=== PATIENT | female | born 1960 | race Caucasian/White ===

== ENCOUNTER → 2017-02-07 | Outpatient (CLI) | payer BC ==
--- NOTE | 2017-02-08 13:46 | MAMMOGRAPHY REPORT ---
BILATERAL DIGITAL SCREENING MAMMOGRAM TOMOSYNTHESIS WITH CAD: 02/07/2017 CLINICAL HISTORY: Routine screening. Patient has no complaints. TECHNIQUE: Breast tomosynthesis in addition to standard 2D mammography was performed. Current study was also evaluated with a Computer Aided Detection (CAD) system. COMPARISON: Comparison is made to exams dated: 02/07/2016 mammogram - [facility], 02/01/2015 mammogram, 12/16/2013 mammogram, 12/13/2012 mammogram, 12/15/2011 mammogram, and 11/22/2009 m ammogram. BREAST COMPOSITION: The tissue of both breasts is heterogeneously dense, which may obscure small mas ses. FINDINGS: The parenchymal pattern is unchanged. No developing mass, architectural distortion or clus ter of suspicious microcalcifications is seen in either breast. IMPRESSION: ACR BI-RADS CATEGORY 2: BENIGN There is no mammographic evidence of malignancy. A 1 year screening mammogram is recommended. The pa tient will receive written notification of the results. Approximately 10% of breast cancers are not detected with mammography. A negative mammographic report should not delay biopsy if a clinically suggestive mass is present. Gladis Fleming M.D. ay/:02/07/2017 16:13:49 Crushing Foreman: Joyce FERRERA(Jessica)(Viktor), [facility] letter sent: Normal 1/2 BI-RADS Code: ACR BI-RADS Category 2: Benign
== END | disposition home or self-care (01) ==
LOC: C.MAMM 15:51
PROVIDERS: ATTEND Obstetrics & Gynecology
DX: Z12.31 Encounter for screening mammogram for malignant neoplasm of breast (principal)

== ENCOUNTER 2023-12-10 17:12 | Observation (INO) ==
[2023-12-10 18:03] LABS: iSTAT Creatinine 0.8 mg/dl (0.6-1.3); iSTAT Hemoglobin 12.2 g/dl (12.0-16.0); iSTAT Ionized Calcium 1.18 mmol/l (1.12-1.32); iSTAT Potassium 3.7 mmol/L (3.3-5.0)
[2023-12-10] MEDS: OPTIRAY 320 125ml IV ONE (18:07)
--- NOTE | 2023-12-10 18:07 | XRay Report ---
XR chest 1V portable CLINICAL HISTORY: Chest pain, nonspecific TECHNIQUE: Single frontal radiograph of the chest was obtained. Comparison: Comparison is made to chest radiograph 10/16/2023 FINDINGS: No lines and tubes are seen. The cardiomediastinal silhouette is normal. Right lateral lung base airs pace opacities are seen. No evidence of pleural effusion or pneumothorax. IMPRESSION: Bilateral lung base airspace opacity may represent atelectasis, pneumonia, and/or aspiration. ACT 112: Negative or not required by law. Electronically signed by: Eric Pablo M.D. 12/10/2023 6:05 PM
[2023-12-10 18:14] LABS: Basophils # (auto) 0.04 K/uL (0.00-0.20); Basophils % (auto) 0.3 %; Eosinophils # (auto) 0.22 K/uL (0.00-0.50); Eosinophils % (auto) 1.8 %; Hematocrit (blood only) 37.9 % (37.0-47.0); Immature Granulocytes # (auto) 0.06 K/uL (0.01-0.20); Immature Granulocytes % (auto) 0.5 %; Lymphocytes # (auto) 3.31 K/uL (1.20-3.40); Lymphocytes % (auto) 26.5 %; Mean Corpuscular Hgb Conc 34.3 g/dL (32.0-36.0); Mean Corpuscular Volume 87.3 fL (80.0-100.0); Mean Platelet Volume 9.4 fL (9.4-12.4); Monocytes # (auto) 0.94 K/uL (0.11-0.59); Monocytes % (auto) 7.5 %; Neutrophils # (auto) 7.93 K/uL (1.40-6.50); Neutrophils % (auto) 63.4 %; Platelet Count 291 K/uL (130-400); RDW Coefficient of Variation 12.7 % (11.5-14.5); RDW Standard Deviation 40.9 fL (36.4-46.3); Red Blood Count 4.34 M/uL (4.20-5.40)
--- NOTE | 2023-12-10 18:24 | CT Scan Report ---
CT angio chest PE protocol CLINICAL HISTORY: Chest Pain, eval for PE TECHNIQUE: Multidetector row helical CT of the chest was performed with angiographic protocol. Pike l and sagittal reformations were obtained. Coronal and sagittal MIPS were obtained from the axial ginny a set and were submitted for review. Automated dose lowering techniques and/or adjustment according to patient size were utilized for this exam. CT DOSE: 432.78 mGy.cm Comparison: Comparison is made to chest radiograph 12/10/2023 FINDINGS: Lungs and pleura: Atelectasis versus scarring is seen in the dependent portions of the lungs. Right l ateral groundglass opacities are seen. Heart and pericardium: Heart size is normal. No pericardial effusion. Vessels: Subsegmental pulmonary emboli are seen. Mediastinum and galo: Subcentimeter lymph nodes are seen. Chest wall and lower neck: Unremarkable. Abdomen: Liver rich adenoma is seen on the left. Bones: Degenerative changes in the thoracic spine. IMPRESSION: 1. Tiny subsegmental pulmonary emboli are seen without evidence of right heart strain. 2. Right lateral opacities may represent pulmonary infarct. ACT 112: Negative or not required by law. Electronically signed by: Eric Pablo M.D. 12/10/2023 6:22 PM
[2023-12-10 18:27] LABS: BUN Creatinine Ratio 16.7 (10-20); Calcium 9.3 mg/dl (8.6-10.3); Creatinine Clr Calc Pharmacy 84.5 ml/min; Potassium 3.9 mmol/L (3.5-5.1)
[2023-12-10 18:34] LABS: Troponin I High Sensitivity 3.3 pg/ml (0-14)
[2023-12-10 18:39] LABS: Partial Thromboplastin Ratio 0.9; Partial Thromboplastin Time 25 Seconds (21-31); Prothrombin Time 10.4 Seconds (9.0-12.0)
[2023-12-10] MEDS: Heparin IV Adult Wt-Based Standard w/ INITIAL Bolus Protocol IV STA (20:00)
--- NOTE | 2023-12-10 20:02 | Ultrasound Report ---
Exam(s): US VENOUS BILATERAL LOWER EXTREMITIES EXAM: US Duplex Bilateral Lower Extremities Veins CLINICAL HISTORY: Reason for exam: ro dvt. TECHNIQUE: Real-time duplex ultrasound scan of the bilateral lower extremity veins integrating B-mode two-dimensional vascular structure, Doppler spectral analysis, color flow Doppler imaging and compression. COMPARISON: Ultrasound doppler LE 12/28/22. FINDINGS: Veins: Superficial thrombus RIGHT small saphenous vein in the popliteal fossa to the mid calf. No right-sided DVT. On the LEFT, there is occlusive thrombus in the posterior tibial veins. In the area of interest left mid calf, occlusive venous thrombus is present in this region as well. No DVT in the remaining visualized veins bilaterally, including the common femoral, superficial femoral, proximal deep femoral and popliteal veins. Soft tissues: No popliteal cyst. IMPRESSION: 1. Positive for LEFT, below the knee DVT posterior tibial veins. 2. In the area of interest left mid calf, there is thrombosis of a probable superficial varicosity, likely accounting for the pain. 3. Superficial thrombus RIGHT SSV. Electronically signed by: Mami Stephen M.D. 12/10/23 20:01 PM
[2023-12-10] MEDS ORDERED: HEPARIN SOD (PORCINE) 1000 UNIT/ML IV ONE (20:07)
[2023-12-10] MEDS: HEPARIN SOD (PORCINE) 1000 UNIT/ML IV ONE (20:10)
[2023-12-10] MEDS: HEPARIN SODIUM/DEXTROSE 25,000 UNITS/500 ML BAG IV SCH (20:10)
--- NOTE | 2023-12-10 20:31 | Emergency Department Note ---
History of Present Illness General Chief Complaint: Shortness of Breath/Dyspnea Stated Complaint: SOB, CHEST PAINS, SHOULDER PAIN, LT LEG PAIN Time Seen by Provider: 12/10/23 17:29 History of Present Illness Provider Complaint: shortness of breath and chest pain Onset (ago): day(s) (1) Consistency/Duration: + progressively worsening Relieved By: + nothing Exacerbated By: + nothing Context: + recent travel and + other (Recent surgery) Associated symptoms: + lower extremity pain; no cough, no wheezing, no polyuria, no palpitations, no abdominal pain or no chest congestion Home Medications Medication Instructions Recorded Confirmed Type No Known Home Medications 05/02/23 06/12/23 History Allergies Allergy/AdvReac Type Severity Reaction Status Date / Time No Known Allergies Allergy Verified 06/12/23 10:56 Past Med/Surg History Problem List (Updated 12/10/23 @ 20:31 by Arthur Barclay MD) DVT (deep venous thrombosis) (Acute) Embolism, pulmonary with infarction (Acute) Pulmonary emboli (Acute) ASCUS with positive high risk HPV cervical Urgency incontinence Medical History Tendinitis of left rotator cuff Surgical History H/O varicose vein ligation Family History Mother Breast cancer Dx between 45-47 Myocardial infarction Sister Breast cancer, Onset Age: 56 Other Diabetes Heart disease Denies family history of Ovarian cancer Prostate cancer Colorectal cancer Social History Smoking Status: Former smoker Second Hand Exposure: No; Do You Dip or Chew Tobacco: No; Hx Alcohol Use: Yes Alcohol Intake Frequency: 2-3 x/Week Hx Substance Use: No Preferred Language: Spanish Feels Safe at Home: Yes Physical Exam 2 Vital Signs: Vital Signs - 24 hr 12/10/23 17:18 12/10/23 17:22 12/10/23 17:46 Temperature 36.8 C Temperature Source Temporal Artery Sc an Pulse Rate 99 H Pulse Rate [Apical ] 66 Pulse Rhythm [Apic al] Regular Pulse Strength [Ap ical] Normal Respiratory Rate 20 18 Respiratory Effort / Characteristics Non-Labored Sponta neous Non-Labored Sponta neous Respiratory Depth Normal Normal Respiratory Patter n Regular Blood Pressure 149/86 H Blood Pressure [Ri ght Arm] 146/72 H Blood Pressure Gail n 107 Blood Pressure Gail n [Right Arm] 96 Blood Pressure Pos ition Sitting Blood Pressure Pos ition [Right Arm] Lying Pulse Oximetry 98 97 96 Oxygen Delivery Me thod Room Air Room Air Room Air Sepsis Recent Feve r Within 48 Hours No Sepsis New/Unexpla ined Change in Men pool Status N/A Sepsis Action Take n by Nursing No Action Required 12/10/23 17:46 12/10/23 18:17 12/10/23 19:43 Temperature Temperature Source Pulse Rate 66 Pulse Rate [Apical ] 67 Pulse Rhythm [Apic al] Pulse Strength [Ap ical] Respiratory Rate 16 Respiratory Effort / Characteristics Non-Labored Sponta neous Respiratory Depth Normal Respiratory Patter n Regular Blood Pressure Blood Pressure [Ri ght Arm] 117/66 Blood Pressure Gail n Blood Pressure Gail n [Right Arm] 83 Blood Pressure Pos ition Blood Pressure Pos ition [Right Arm] Pulse Oximetry 96 97 Oxygen Delivery Me thod Room Air Room Air Sepsis Recent Feve r Within 48 Hours Sepsis New/Unexpla ined Change in Men pool Status Sepsis Action Take n by Nursing Physical Exam: Physical Exam GENERAL: She is oriented to person, place, and time. She appears well-developed and well-nourished. She does not appear distressed. HENT: Exam performed. -Head: Normocephalic and atraumatic. EYES: Conjunctivae and EOM are normal. Pupils are equal, round, and reactive to light. Right eye exhibits no discharge. Left eye exhibits no discharge. No scleral icterus. NECK: Normal range of motion. Neck supple. No JVD present. CV: Normal rate, regular rhythm, normal heart sounds and intact distal pulses. There is no peripheral edema. Palpable radial pulses bue. PULM/CHEST: Effort normal and breath sounds normal. No respiratory distress. No stridor. She has no wheezes. She has no rales. MUSC/SKEL: Palpable DP and PT pulses bilateral lower extremities. Compartments of the lower extremities are soft bilaterally. Pain on palpation of bilateral calves. NEURO: She is alert and oriented to person, place, and time. She has normal strength. No cranial nerve deficit or sensory deficit. Coordination and gait normal. GCS eye subscore is 4. GCS verbal subscore is 5. GCS motor subscore is 6. Cerebellar tests wnl. SKIN: Skin is warm and dry. She is not diaphoretic. PSYCH: She has a normal mood and affect. Behavior is normal. Judgment and thought content normal. Course Course 1728: The patient was evaluated in room A3. A complete history and physical exam was performed Cardiac monitoring: An order was placed for continuous cardiac monitoring. The monitor shows a rate of 70 with sinus rhythm interpreted by 1950: Vital signs stable. Labs are unremarkable. CTA of the chest shows right- sided PEs with infarct. Ultrasound is concerning for DVT. Discussed the case with the patient. Given her PEs with pulmonary infarcts and her DVT as well as PE, will admit the patient for anticoagulation with heparin. [facility] hospitalist will be made aware of admission. Administered Medications Heparin Sodium/Dextrose (Heparin Sodium/Dextrose) 25,000 units in 500 mls @ 23 mls/hr IV .[id number] [facility]; Protocol Stop: 01/09/24 20:14 Last Admin: 12/10/23 20:10 Dose: 1,150 units/hr, 23 mls/hr Documented By: VIJAY Co-signed By: MALA Discontinued Medications Heparin Sodium (Porcine) (Heparin Sod (Porcine) 1000 Unit/Ml) 5,000 units IV NOW ONE Stop: 12/10/23 20:08 Last Admin: 12/10/23 20:10 Dose: 5,000 units Documented By: VIJAY Co-signed By: MALA Heparin Sodium/Dextrose (Heparin Iv Adult Wt-Based Standard W/ Initial Bolus Protocol) 1 each IV NOW [facility]; Protocol Stop: 12/10/23 19:52 Last Admin: 12/10/23 20:00 Dose: 1 each Documented By: VIJAY Ioversol (Optiray 320 125ml) 119 ml IV ONCE ONE Stop: 12/10/23 18:07 Last Admin: 12/10/23 18:07 Dose: 119 ml Documented By: ROSENDO Medical Decision Making Laboratory Data Attestation: I reviewed the patient's lab results. 12/10/23 17:31 12/10/23 17:31 Lab Results 12/10/23 12/10/23 Range/Units 17:31 17:51 WBC 12.50 H (4.8-10.8) K/ul RBC 4.34 (4.20-5.40) M/uL Hgb 13.0 (12.0-16.0) g/dl POC Hgb 12.2 (12.0-16.0) g/dl Hct 37.9 (37.0-47.0) % POC Hct 36 L (37-47) % MCV 87.3 (80.0-100.0) fL MCH 30.0 (25.0-34.0) pg MCHC 34.3 (32.0-36.0) g/dL RDW Std Deviation 40.9 (36.4-46.3) fL RDW Coeff of Shivani 12.7 (11.5-14.5) % Plt Count 291 (130-400) K/uL MPV 9.4 (9.4-12.4) fL Immature Gran % (Auto) 0.5 % Neut % (Auto) 63.4 % Lymph % (Auto) 26.5 % [place] % (Auto) 7.5 % Eos % (Auto) 1.8 % Baso % (Auto) 0.3 % Neut # (Auto) 7.93 H (1.40-6.50) K/uL Lymph # (Auto) 3.31 (1.20-3.40) K/uL [place] # (Auto) 0.94 H (0.11-0.59) K/uL Eos # (Auto) 0.22 (0.00-0.50) K/uL Baso # (Auto) 0.04 (0.00-0.20) K/uL Immature Gran # (Auto) 0.06 (0.01-0.20) K/uL PT 10.4 (9.0-12.0) Seconds INR 1.0 (0.9-1.1) APTT 25 (21-31) Seconds PTT Ratio 0.9 POC Sodium 139 (135-144) mmol/L Sodium 138 (136-145) mmol/L POC Potassium 3.7 (3.3-5.0) mmol/L Potassium 3.9 (3.5-5.1) mmol/L POC Chloride 103 (101-112) mmol/L Chloride 104 (98-107) mmol/L Carbon Dioxide 27 (21-32) mmol/L POC Total CO2 23 L (24-31) mmol/L Anion Gap 7 (3-11) POC Anion Gap 18.0 (16-25) mmol/L POC BUN 10 (7-18) mg/dl BUN 11 (6-23) mg/dl Creatinine 0.66 (0.6-1.2) mg/dl POC Creatinine 0.8 (0.6-1.3) mg/dl Est Cr Clr Drug Dosing 84.5 ml/min eGFR 97.29 BUN/Creatinine Ratio 16.7 (10-20) Glucose 92 (70-99(Fasting)) mg/dl POC Glucose (other) 96 (70-99) mg/dl Calcium 9.3 (8.6-10.3) mg/dl POC Ioniz Calcium Pam 1.18 (1.12-1.32) mmol/l Troponin I High Sens 3.3 (0-14) pg/ml Lipase 25 (11-82) U/L Imaging Data Attestation: I personally reviewed and interpreted this imaging study as follows: My Impression: Ultrasound bilateral lower extremity concerning for DVT on the left. Radiologist's Impression: Chest X-Ray 12/10/23 17:45 XR chest 1V portable CLINICAL HISTORY: Chest pain, nonspecific TECHNIQUE: Single frontal radiograph of the chest was obtained. Comparison: Comparison is made to chest radiograph 10/16/2023 FINDINGS: No lines and tubes are seen. The cardiomediastinal silhouette is normal. Right lateral lung base airspace opacities are seen. No evidence of pleural effusion or pneumothorax. IMPRESSION: Bilateral lung base airspace opacity may represent atelectasis, pneumonia, and/or aspiration. ACT 112: Negative or not required by law. Electronically signed by: Eric Pablo M.D. 12/10/2023 6:05 PM Chest CTA 12/10/23 17:46 CT angio chest PE protocol CLINICAL HISTORY: Chest Pain, eval for PE TECHNIQUE: Multidetector row helical CT of the chest was performed with angiographic protocol. Coronal and sagittal reformations were obtained. Coronal and sagittal MIPS were obtained from the axial data set and were submitted for review. Automated dose lowering techniques and/or adjustment according to patient size were utilized for this exam. CT DOSE: 432.78 mGy.cm Comparison: Comparison is made to chest radiograph 12/10/2023 FINDINGS: Lungs and pleura: Atelectasis versus scarring is seen in the dependent portions of the lungs. Right lateral groundglass opacities are seen. Heart and pericardium: Heart size is normal. No pericardial effusion. Vessels: Subsegmental pulmonary emboli are seen. Mediastinum and galo: Subcentimeter lymph nodes are seen. Chest wall and lower neck: Unremarkable. Abdomen: Liver rich adenoma is seen on the left. Bones: Degenerative changes in the thoracic spine. IMPRESSION: 1. Tiny subsegmental pulmonary emboli are seen without evidence of right heart strain. 2. Right lateral opacities may represent pulmonary infarct. ACT 112: Negative or not required by law. Electronically signed by: Eric Pablo M.D. 12/10/2023 6:22 PM Venous Doppler Study 12/10/23 17:46 Exam(s): US VENOUS BILATERAL LOWER EXTREMITIES EXAM: US Duplex Bilateral Lower Extremities Veins CLINICAL HISTORY: Reason for exam: ro dvt. TECHNIQUE: Real-time duplex ultrasound scan of the bilateral lower extremity veins integrating B-mode two-dimensional vascular structure, Doppler spectral analysis, color flow Doppler imaging and compression. COMPARISON: Ultrasound doppler LE 12/28/22. FINDINGS: Veins: Superficial thrombus RIGHT small saphenous vein in the popliteal fossa to the mid calf. No right-sided DVT. On the LEFT, there is occlusive thrombus in the posterior tibial veins. In the area of interest left mid calf, occlusive venous thrombus is present in this region as well. No DVT in the remaining visualized veins bilaterally, including the common femoral, superficial femoral, proximal deep femoral and popliteal veins. Soft tissues: No popliteal cyst. IMPRESSION: 1. Positive for LEFT, below the knee DVT posterior tibial veins. 2. In the area of interest left mid calf, there is thrombosis of a probable superficial varicosity, likely accounting for the pain. 3. Superficial thrombus RIGHT SSV. Electronically signed by: Mami Stephen M.D. 12/10/23 20:01 PM ECG Data Attestation: I personally reviewed and interpreted this ECG as follows: Interpretation: Sinus rhythm with rate of 69. KS QRS and QTc intervals within normal limits. No ST elevation or ST depression. [facility] Narrative 1729: The patient was evaluated in room A3. A complete history and physical exam was performed Cardiac monitoring: An order was placed for continuous cardiac monitoring. The monitor shows a rate of 70 with sinus rhythm interpreted by pa 1950: Vital signs stable. Labs are unremarkable. CTA of the chest shows right- sided PEs with infarct. Ultrasound is concerning for DVT. Discussed the case with the patient. Given her PEs with pulmonary infarcts and her DVT as well as PE, will admit the patient for anticoagulation with heparin. [facility] hospitalist will be made aware of admission. Impression & Plan Pulmonary emboli, Embolism, pulmonary with infarction, DVT (deep venous thrombosis) Critical Care Time Critical Care Time: Yes Total Critical Care Time: 56 I have personally spent greater than 56 minutes of critical care time in the direct management of this patient. This includes bedside care, interpretation of diagnostic studies, and testing, discussion with consultants, patient, and family members, and other required patient management activities. This 56 minutes is in excess of all separately billable procedures. Discharge Plan Visit Data Chief Complaint: Shortness of Breath/Dyspnea Stated Complaint: SOB, CHEST PAINS, SHOULDER PAIN, LT LEG PAIN ED Provider: Arthur Barclay Discharge Problem: Pulmonary emboli, Embolism, pulmonary with infarction, DVT (deep venous thrombosis) Patient Disposition: Being Evaluated by Hospitalist Discharge Instructions Interventions: ED Discharge Assessment Last Done: 12/10/23 21:54 Discharge Problem: Pulmonary emboli Qualifiers: Pulmonary embolism type: multiple subsegmental (without acute cor pulmonale) Q ualified Code(s): I26.94 - Multiple subsegmental thrombotic pulmonary emboli without acute cor pulmonale
--- NOTE | 2023-12-10 20:59 | History & Physical Report ---
Date of Service December 10, 2023 Assessment & Plan (1) Embolism, pulmonary with infarction: Plan: 63yo female presenting with LLE DVT and PE with pulmonary infarct. Patient with history of prior superficial thrombus within a varicosity of her right calf in December 2022 s/p completion of Eliquis x 3 months (17cm lenght of thrombus). She had varicose vein surgery performed at [facility] 2 weeks ago which was well tolerated and without complication. She did fly to [place] recently as well. Now with DVT in the LEFT posterior tibial veins as well as superficial thromboses in the left mid calf and right small saphenous vein. Also with tiny subsegmental pulmonary emboli and right with possible pulmonary infarct. VTE likely provoked in setting of recent surgery and travel. Patient with history of prior superficial thrombus but does not endorse prior DVT or PE. -Admit to medical -Continue heparin gtt with likely transition to DOAC in AM. Would consider treatment duration of 1 year given recurrence of VTE requiring anticoagulation, although this is her first DVT and is likely provoked. -Check 2D echo in AM -Tylenol PRN pain History of Present Illness Chief Complaint: LLE pain, right sided pleuritic chest pain Primary Care Provider: Eva Saldivar Delicia Gamez is a 63yo female with no significant past medical or surgical history presenting with LLE pain as well as right sided pleuritic chest pain. Patient with history of varicose veins s/p vein stripping in the past. She developed a blood clot in her RLE varicosity in December 2022 and was treated with Eliquis x 3 months (venous doppler 12/28/22 with longsegment superficial thrombus within varicosity of theright calf extending 17cm). She had varicose vein surgery two weeks ago performed at [facility] which was uncomplicated. Patient recently flew to [place], [place]. Several days ago she developed some pain and tightness in her left calf with walking. Today she developed sudden onset of right shoulder and anterior chest discomfort - pleuritic in nature. She feels like she is having a hard time taking a full breath. Patient called her surgeon at [facility] and was instructed by the on- call provider to go to the ER for evaluation. No additional complaints - specifically denies fever, chills, palpitations, abdominal pain, nausea, vomiting, diarrhea. In the ER patient afebrile, HD stable, adequate oxygenation on room air ER Course: Heparin gtt initiated Allergies Allergy/AdvReac Type Severity Reaction Status Date / Time No Known Allergies Allergy Verified 06/12/23 10:56 Home Medications Medication Instructions Recorded Confirmed Type No Known Home Medications 05/02/23 12/10/23 History Past Med/Surg History Problem List DVT (deep venous thrombosis) (Acute) Embolism, pulmonary with infarction (Acute) Pulmonary emboli (Acute) ASCUS with positive high risk HPV cervical Urgency incontinence Medical History Tendinitis of left rotator cuff Surgical History H/O varicose vein ligation Family History Mother Breast cancer Dx between 45-47 Myocardial infarction Sister Breast cancer, Onset Age: 56 Other Diabetes Heart disease Denies family history of Ovarian cancer Prostate cancer Colorectal cancer Social History Smoking Status: Never smoker Second Hand Exposure: No; Do You Dip or Chew Tobacco: No; Hx Alcohol Use: Yes Alcohol type: wine Alcohol Intake Frequency: 2-3 x/Week Hx Substance Use: No Preferred Language: Upper Sorbian Communication Ability: Effective Veterinary Technician Assistant Required: No Beliefs That Will Affect Care: None Current Living Situation: Spouse Feels Safe at Home: Yes Safety Concerns: Feels Safe At This Time Assistive Devices: Glasses Review of Systems Review of Systems: All systems reviewed & are unremarkable except as noted in HPI & below Physical Exam Physical Exam: General: patient resting comfortably, NAD, non-toxic in appearance, AA&O x 4 Skin: warm, dry, intact, no rashes or lesions HEENT: NC/AT, PERRL, EOMI, anicteric sclera, conjunctiva without injection, external ear normal to inspection and nontender, nares patent, moist mucus membranes, dentition intact, no oropharyngeal lesions, neck supple, trachea midline, no LAD, no thyromegaly, no JVD Heart: +S1/S2, regular, no m/r/g Lungs: equal air entry bilaterally, no rales/rhonchi/wheezes Abd: +BS, soft, NT/ND, no masses/organomegaly/ascites Ext: warm, 2+ pulses in UE/LE bilaterally, no clubbing/cyanosis or edema Neuro: nonfocal, patient AA&O x 4, speech intact, no facial droop, moving all extremities on command with equal strength 5/5 Results & Data Results & Data Vital Signs (Past 12 Hours) Vital Signs Temp Pulse Pulse Resp BP BP Pulse Ox 12/10/23 19:43 67 16 117/66 97 12/10/23 18:17 66 12/10/23 17:46 96 12/10/23 17:46 66 18 146/72 H 96 12/10/23 17:22 97 12/10/23 17:18 36.8 C 99 H 20 149/86 H 98 O2 Del Method 12/10/23 19:43 Room Air 12/10/23 18:17 12/10/23 17:46 Room Air 12/10/23 17:46 Room Air 12/10/23 17:22 Room Air 12/10/23 17:18 Room Air Laboratory Results Laboratory Results WBC 12.50 K/ul (4.8-10.8) H 12/10/23 17:31 RBC 4.34 M/uL (4.20-5.40) 12/10/23 17:31 Hgb 13.0 g/dl (12.0-16.0) 12/10/23 17:31 POC Hgb 12.2 g/dl (12.0-16.0) 12/10/23 17:51 Hct 37.9 % (37.0-47.0) 12/10/23 17:31 POC Hct 36 % (37-47) L 12/10/23 17:51 MCV 87.3 fL (80.0-100.0) 12/10/23 17:31 MCH 30.0 pg (25.0-34.0) 12/10/23 17:31 MCHC 34.3 g/dL (32.0-36.0) 12/10/23 17:31 RDW Std Deviation 40.9 fL (36.4-46.3) 12/10/23 17:31 RDW Coeff of Shivani 12.7 % (11.5-14.5) 12/10/23 17:31 Plt Count 291 K/uL (130-400) 12/10/23 17:31 MPV 9.4 fL (9.4-12.4) 12/10/23 17:31 Immature Gran % (Auto) 0.5 % 12/10/23 17:31 Neut % (Auto) 63.4 % 12/10/23 17:31 Lymph % (Auto) 26.5 % 12/10/23 17:31 [place] % (Auto) 7.5 % 12/10/23 17:31 Eos % (Auto) 1.8 % 12/10/23 17:31 Baso % (Auto) 0.3 % 12/10/23 17:31 Neut # (Auto) 7.93 K/uL (1.40-6.50) H 12/10/23 17:31 Lymph # (Auto) 3.31 K/uL (1.20-3.40) 12/10/23 17:31 [place] # (Auto) 0.94 K/uL (0.11-0.59) H 12/10/23 17:31 Eos # (Auto) 0.22 K/uL (0.00-0.50) 12/10/23 17:31 Baso # (Auto) 0.04 K/uL (0.00-0.20) 12/10/23 17:31 Immature Gran # (Auto) 0.06 K/uL (0.01-0.20) 12/10/23 17:31 PT 10.4 Seconds (9.0-12.0) 12/10/23 17:31 INR 1.0 (0.9-1.1) 12/10/23 17:31 APTT 25 Seconds (21-31) 12/10/23 17:31 PTT Ratio 0.9 12/10/23 17:31 POC Sodium 139 mmol/L (135-144) 12/10/23 17:51 Sodium 138 mmol/L (136-145) 12/10/23 17:31 POC Potassium 3.7 mmol/L (3.3-5.0) 12/10/23 17:51 Potassium 3.9 mmol/L (3.5-5.1) 12/10/23 17:31 POC Chloride 103 mmol/L (101-112) 12/10/23 17:51 Chloride 104 mmol/L (98-107) 12/10/23 17:31 Carbon Dioxide 27 mmol/L (21-32) 12/10/23 17:31 POC Total CO2 23 mmol/L (24-31) L 12/10/23 17:51 Anion Gap 7 (3-11) 12/10/23 17:31 POC Anion Gap 18.0 mmol/L (16-25) 12/10/23 17:51 POC BUN 10 mg/dl (7-18) 12/10/23 17:51 BUN 11 mg/dl (6-23) 12/10/23 17:31 Creatinine 0.66 mg/dl (0.6-1.2) 12/10/23 17:31 POC Creatinine 0.8 mg/dl (0.6-1.3) 12/10/23 17:51 Est Cr Clr Drug Dosing 84.5 ml/min 12/10/23 17:31 eGFR 97.29 12/10/23 17:31 BUN/Creatinine Ratio 16.7 (10-20) 12/10/23 17:31 Glucose 92 mg/dl (70-99(Fasting)) 12/10/23 17:31 POC Glucose (other) 96 mg/dl (70-99) 12/10/23 17:51 Calcium 9.3 mg/dl (8.6-10.3) 12/10/23 17:31 POC Ioniz Calcium Pam 1.18 mmol/l (1.12-1.32) 12/10/23 17:51 Troponin I High Sens 3.3 pg/ml (0-14) 12/10/23 17:31 Lipase 25 U/L (11-82) 12/10/23 17:31 SARS-CoV-2 (PCR) NEGATIVE (Negative) 12/10/23 21:13 Influenza Type A (PCR) Negative (Neg) 12/10/23 21:13 Influenza Type B (PCR) Negative (Neg) 12/10/23 21:13 RSV (RT-PCR) Negative (Neg) 12/10/23 21:13 Impressions Chest X-Ray 12/10/23 17:45 XR chest 1V portable CLINICAL HISTORY: Chest pain, nonspecific TECHNIQUE: Single frontal radiograph of the chest was obtained. Comparison: Comparison is made to chest radiograph 10/16/2023 FINDINGS: No lines and tubes are seen. The cardiomediastinal silhouette is normal. Right lateral lung base airspace opacities are seen. No evidence of pleural effusion or pneumothorax. IMPRESSION: Bilateral lung base airspace opacity may represent atelectasis, pneumonia, and/or aspiration. ACT 112: Negative or not required by law. Electronically signed by: Eric Pablo M.D. 12/10/2023 6:05 PM Chest CTA 12/10/23 17:46 CT angio chest PE protocol CLINICAL HISTORY: Chest Pain, eval for PE TECHNIQUE: Multidetector row helical CT of the chest was performed with angiographic protocol. Coronal and sagittal reformations were obtained. Coronal and sagittal MIPS were obtained from the axial data set and were submitted for review. Automated dose lowering techniques and/or adjustment according to patient size were utilized for this exam. CT DOSE: 432.78 mGy.cm Comparison: Comparison is made to chest radiograph 12/10/2023 FINDINGS: Lungs and pleura: Atelectasis versus scarring is seen in the dependent portions of the lungs. Right lateral groundglass opacities are seen. Heart and pericardium: Heart size is normal. No pericardial effusion. Vessels: Subsegmental pulmonary emboli are seen. Mediastinum and galo: Subcentimeter lymph nodes are seen. Chest wall and lower neck: Unremarkable. Abdomen: Liver rich adenoma is seen on the left. Bones: Degenerative changes in the thoracic spine. IMPRESSION: 1. Tiny subsegmental pulmonary emboli are seen without evidence of right heart strain. 2. Right lateral opacities may represent pulmonary infarct. ACT 112: Negative or not required by law. Electronically signed by: Eric Pablo M.D. 12/10/2023 6:22 PM Venous Doppler Study 12/10/23 17:46 Exam(s): US VENOUS BILATERAL LOWER EXTREMITIES EXAM: US Duplex Bilateral Lower Extremities Veins CLINICAL HISTORY: Reason for exam: ro dvt. TECHNIQUE: Real-time duplex ultrasound scan of the bilateral lower extremity veins integrating B-mode two-dimensional vascular structure, Doppler spectral analysis, color flow Doppler imaging and compression. COMPARISON: Ultrasound doppler LE 12/28/22. FINDINGS: Veins: Superficial thrombus RIGHT small saphenous vein in the popliteal fossa to the mid calf. No right-sided DVT. On the LEFT, there is occlusive thrombus in the posterior tibial veins. In the area of interest left mid calf, occlusive venous thrombus is present in this region as well. No DVT in the remaining visualized veins bilaterally, including the common femoral, superficial femoral, proximal deep femoral and popliteal veins. Soft tissues: No popliteal cyst. IMPRESSION: 1. Positive for LEFT, below the knee DVT posterior tibial veins. 2. In the area of interest left mid calf, there is thrombosis of a probable superficial varicosity, likely accounting for the pain. 3. Superficial thrombus RIGHT SSV. Electronically signed by: Mami Stephen M.D. 12/10/23 20:01 PM ECG Additional Comments: EKG per my interpretation reveals NSR at 69bpm, normal axis, TW=137, QRS=88, ZXq=805, no acute ischemic changes PG Care Time/CCT Total # of Minutes Spent Total Time Spent with Patient: Total time spent is greater than 50% in coordination of care (as documented) at patient's floor/unit and/or counseling patient: Coding Level of Care Code 79555 INT INP/OBS CARE 2/55MIN Diagnoses Embolism, pulmonary with infarction I26.99
[2023-12-10] MEDS ORDERED: ONDANSETRON INJ 2 MG/ML 2 ML VIAL IV PRN (21:54)
[2023-12-10 22:01] LABS: Influenza A virus by PCR Negative (Neg); Influenza B virus by PCR Negative (Neg); RSV by PCR Negative (Neg); SARS CoV2 RNA(COVID-19) Ceph NEGATIVE (Negative)
[2023-12-11 03:35] LABS: ANTI-Xa, UFH(UnfractionatedHep 0.75 IU/ml (0.3-0.7)
--- OUTSIDE RECORDS SUMMARY | 2023-12-11 03:37 | External Medical Summary | Summary of Care ---
Author Name Unknown Organization [facility] Address [address] [place] [address] Phone [phone] Care Team Providers Care Claim Taker Name Role Phone Eva Saldivar NANCY Primary Care Provider [phone] Reason for Visit * Reason Comments Post-Op Encounter Details Date Type Department Care Team (Late st Contact Info) Description 11/28/2023 2:10 PM EDT Office Visit Vascular Surgery, [facility] [address] [place] [address] Sd Art MD [address] [place] [address] Varicose veins of leg with complications* Allergies No known active allergiesdocumented as of this encounter (statuses as of 11/28/2023) Medications Medication Sig Dispensed Refills Start Date End Date Status oxyCODONE HCl 5 MG Oral Tablet (Oxy IR) Take 1 Tablet by mouth every 8 hours as needed for Pain, Severe. 5 Tablet 11/26/2023 Active Additional Information Patient not taking.Reported on 11/28/2023 documented as of this encounter (statuses as of 11/28/2023) Active Problems Problem Noted Date Diagnosed Date Varicose veins of leg with complications 024 Thrombophlebitis of superfic ial veins of right lower extremity 09/12/2023 documented as of this encounter (statuses as of 11/28/2023) Social History Tobacco Use Types Packs/Day Years Used Date Smoking Tobacco: Former Cigarettes Q uit: 09/11/1993 Smokeless Tobacco: Never Tobacco Cessation:Counseling Given: No Alcohol Use Standard Drinks/Week Comments Yes 0 (1 standard drink = 0.6 oz pur e alcohol) Utilities Answer Date Recorded Do you have trouble paying y our heating, water, or electric bill? (Adult - for ages 18 years and over) Not on file 07/31/2023 Is your family able to pay t he heat, water, or electric bill? (Household - for ages 0-17 years) Not on file 07/31/2023 Does your family have access to good internet? (Household - for ages 0-17 years) Not on file 07/31/2023 Social Connections Answer Date Recorded How often do you feel lonely or isolated from those around you? (Adult - for ages 18 years and over) Not on file 07/31/2023 Sex and Gender Information Value Date Recorded Sex Assigned at Not on file Gender Identity Not on file Sexual Orientation Not on file Job Start Date Occupation Industry Not on file Not on file Not on file documented as of this encounter Last Filed Vital Signs Vital Sign Reading Time Taken Comments Blood Pressure 124/64 11/28/2023 1:24 PM EDT Pulse 66 11/28/2023 1:24 PM EDT Temperature 35.8 C (96.4 F) 11/28/2023 1:24 PM ED T Respiratory Rate - - Oxygen Saturation - - Inhaled Oxygen Concentration - - Weight 71.9 kg (158 lb 8 oz) 11/28/2023 1:24 PM EDT Height - - Body Mass Index 23.41 09/12/2023 12:00 PM EDT documented in this encounter Progress Notes * Yusuf Melton PA-C - 11/28/2023 2:10 PM EDT Images from the original note were not included. Date of Service: 11/28/2023 1:40 PM Delicia Gamez is a 62 year old female. Patient being seen in consultation at the request of NANCY Staley Chief Complaint: Post op appointment S/P RLE RFA of SSV with #15 stab avulsions on 11/26/[address] 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 S (Symptomatic) varicose veins. Etiologic Classification (E): Ep (Primary). Anatomic Classification (A): As (Superficial). Pathophysiologic Classification (P): Pr (Reflux). FAMILY HISTORY: Dad had varicose veins and sister Current Outpatient Medications Medication Sig Dispense Refill oxyCODONE HCl 5 MG Oral Tablet (Oxy IR) Take 1 Tablet by mouth every 8 hours as needed for Pain, Severe. (Patient not taking: Reported on 11/28/2023) 5 Tablet 0 No current facility-administered medications for this visit. Review of patient's allergies indicates: No Known Allergies Patient Active Problem List Diagnosis Varicose veins of leg with complications Thrombophlebitis of superficial veins of right lower extremity No past medical history on file. Past Surgical History: Procedure Laterality Date STAB PHLEB VARICOSE VEINS,1 EX Right 11/26/2023 STAB PHLEBECTOMY VARICOSE VEINS ONE EXTREMITY - performed by Bright Aguilera [place] [facility] [place] VEIN ABLATION EXTREMITY,ENDOVEN,1ST Right 11/26/2023 ENDOVENOUS RADIOFREQUENCY ABLATION THERAPY FIRST VEIN performed by Bright Aguilera MD [place] [facility] [place] No family history on file. Social History Socioeconomic History Marital status: Spouse name: Not on file Number of children: Not on file Years of education: Not on file Highest education level: Not on file Occupational History Not on file Tobacco Use Smoking status: Former Current packs/day: 0.00 Types: Cigarettes Quit date: 09/11/1993 Years since quittin.2 Smokeless tobacco: Never Substance and Sexual Activity Alcohol use: Yes Drug use: Never Sexual activity: Not on file Other Topics Concern Not on file Social History Narrative Not on file Social Determinants of Health Financial Resource Strain: Not on file Food Insecurity: Not on file Transportation Needs: Not on file Social Connections: Unknown (07/31/2023) Social Connections How often do you feel lonely or isolated from those around you? (Adult - for ages 18 years and over): Not on file Housing Stability: Not on file COMPLETE REVIEW OF SYSTEMS: Cardiovascular: Negative for chest pain, shortness of breath, palpitations, angina or [place] Neurological: Negative for stroke, TIA, amaurosis fugax All other systems negative except for those noted above and in the history of present illness (HPI). GENERAL MULTI-SYSTEM PHYSICAL EXAM: VITAL SIGNS: BP 124/64 (BP Site: Left Arm, BP Position: Sitting, BP Cuff Size: Regular) | Pulse 66 | Temp 35.8 C (96.4 F) (Temporal Artery) | Wt 71.9 kg (158 lb 8 oz) | BMI 23.41 kg/m | BSA 1.87 m GENERAL MULTI-SYSTEM PHYSICAL EXAM:ADDITIONAL VS: pulse regular. GENERAL: Normal grooming habits, no acute distress, and appears stated age. NECK: No masses and Normal Thyroid. RESPIRATORY: respiratory effort normal and breath sounds normal. CARDIOVASCULAR: no heart murmurs, no edema GASTROINTESTINAL: no tenderness, protuberant, and abdominal aorta not palpable. LYMPHATIC: cervical lymph nodes normal and inguinial lymph nodes normal. SKIN: no ulcers, no rash, no induration, capillary refill normal, and no dependent rubor. PSYCHIATRIC: orientation to time, place and person normal and recent and remote memory normal. EYES: conjunctivae normal, eye lids normal, pupils normal, and irises normal. NEUROLOGIC: Cranial nerves intact, Motor function intact, and Sensory exam intact RIGHT LEG: Multiple stab incisions covered with steri strips, no bleeding 11/28/23 09/12/23 PULSE SCALE: Carotid Right:----Bruit: No Left:----Bruit: No Radial Right: 3 Left: 3 Femoral Right: 3 Left: 3 Dorsalis Pedis Right: 3 Left: 3 Posterior Tibial Right: 3 Left: 3 PULSE SCALE: 4=Aneurysmal; 3=Normal; 2=Diminished; 1=Barely Palpable; 0=Absent DIAGNOSTIC STUDIES: 11/28/23 RLE Venous Duplex: Ablated RSSV The above diagnostic images were directly visualized and independently interpreted by me on 11/28/2023 with results as above 09/12/23 Venous Insuff Duplex: No deep reflux, RGSV UI, RSSV 0.71 cm w/ reflux over 500 msec IMPRESSIONS: S/P RLE RFA SSV with #15 stab avulsions on 11/26/[address] Aguilera for symptomatic varicose veins and H/O superficial thrombophlebitis RLE superficial thrombophlebitis, 17 cm of right calf 2022 Treated with 3 months Eliquis Seen by Aj, found to have Protein S Deficiency Has remote H/O BLE VV stripping, 30 yrs ago PLAN: The patient was counseled regarding the pathophysiology and the natural history of varicose veins/venous insufficiency, as well as the interventional and noninterventional treatment options - 30 mm knee high compression stockings, leg elevation, and a regular walking program. Doing well post op Take off any remaining steri strips off by POD #7 Get back into knee high compression socks when able OK to travel to [place] in next couple weeks. Wear compression socks when flying Yusuf Melton PA-C Section of Vascular [place] [address] [phone] documented in this encounter Nursing Notes * Lauren Arevalo CMA - 11/28/2023 1:26 PM EDT Reviewed the option of transferring scripts to [facility] pharmacy with patient and / or family. Lauren Arevalo CMA documented in this encounter Plan of Treatment Health Maintenance Due Date Last Done Comments Lipid Panel 1958 Depression Screening 1970 HIV Screening 1973 Hepatitis C Screening 1976 DTap/Tdap Vaccines (1 - Tdap) 1977 Pap Smear 12/10/1979 Cervical Cancer Screening 1988 HPV/Co-Test 1988 Mammogram 1998 Cologuard 12/10/2003 Colonoscopy 12/10/2003 Colorectal Cancer Screening 12/10/2003 Fecal Occult Blood Test 12/10/2003 Sigmoidoscopy 12/10/2003 Zoster Vaccines (1 of 2) 2008 COVID-19 Vaccine (4 2023-2 5 season) 2023 11/24/2020, 05/21/2020, 04/30/2020 Influenza Vaccine (FLU shot) (#1) 2023 12/14/2015 HPV (Gardasil) Vaccine Aged Out No lo nger eligible based on patient's age to complete this topic Hepatitis B Vaccine Aged Out No longe r eligible based on patient's age to complete this topic MENINGOCOCCAL (MENACTRA/MENVEO) Aged Out No longer eligible b ased on patient's age to complete this topic Pneumococcal Vaccine: Pediatrics (0 to 5 Years) and At-Risk Patients (6 to 64 Years) Aged Out No longer eligible b ased on patient's age to complete this topic documented as of this encounter Medical Devices Not on filedocumented as of this encounter Visit Diagnoses Diagnosis Varicose veins of leg with complications- Primary Varicose veins of lower extremities with other complications documented in this encounter Care Teams Claim Taker Relationship Specialty Start Date End Date Eva Saldivar CRNP [address] [facility] [place] [address] PCP - General Nurse Practitioner 02/21/23 documented as of this encounter"
--- OUTSIDE RECORDS SUMMARY | 2023-12-11 03:37 | External Medical Summary | Summary of Care ---
Author Name Unknown Organization [facility] Address [address] [place] [address] Phone [phone] Care Team Providers Care Patternmaker Plaster [employer] Plastic Name Role Phone Eva Saldivar NANCY Primary Care Provider [phone] Reason for Visit * Reason Onset Date Comments Advice 12/03/2023 Encounter Details Date Type Department Care Team (Late st Contact Info) Description 12/03/2023 Telephone Vascular Surg [facility] [address] [place] [address] Services, Scheduling [address] [place] [address] Advice Allergies No known active allergiesdocumented as of this encounter (statuses as of 12/03/2023) Medications Medication Sig Dispensed Refills Start Date End Date Status oxyCODONE HCl 5 MG Oral Tablet (Oxy IR) Take 1 Tablet by mouth every 8 hours as needed for Pain, Severe. 5 Tablet 11/26/2023 Active Additional Information Patient not taking.Reported on 11/28/2023 documented as of this encounter (statuses as of 12/03/2023) Active Problems Problem Noted Date Diagnosed Date Varicose veins of leg with complications 024 Thrombophlebitis of superfic ial veins of right lower extremity 09/12/2023 documented as of this encounter (statuses as of 12/03/2023) Social History Tobacco Use Types Packs/Day Years Used Date Smoking Tobacco: Former Cigarettes Q uit: 09/11/1993 Smokeless Tobacco: Never Alcohol Use Standard Drinks/Week Comments Yes 0 [...] on file documented as of this encounter Miscellaneous Notes * Telephone Encounter - Alexis Esacmilla CRNP - 12/03/2023 8:53 AM EDT Reviewed routine post-op care/expectations. Did offer to see her today; however, she declined. NANCY Bailey 12/03/2023 8:54 AM * Telephone Encounter - Jarod Mcgowan - [facility], [facility] - 12/03/2023 8:34 AM EDT Jazmyne is calling having some pain would like a call back Thank you jarod documented in this encounter Plan of Treatment [...] Vaccines (1 of 2) 2008 COVID-19 Vaccine (2023-2 5 season) 2023 11/24/2020, 05/21/2020, 04/30/2020 Influenza [...] Not on filedocumented as of this encounter Care Teams Patternmaker [employer] Relationship Specialty Start Date End Date Eva Saldivar CRNP [address] [place] [address] PCP - General Nurse Practitioner 02/21/23 documented as of this encounter
--- OUTSIDE RECORDS SUMMARY | 2023-12-11 03:37 | External Medical Summary | Summary of Care ---
Author Name Unknown Organization [facility] Address [address] [place] [address] Phone [phone] Care Team Providers Care Executive Kitchen Manager Name Role Phone Eva Saldivar NANCY Primary Care Provider [phone] Reason for Visit * Reason Onset Date Comments Advice 12/03/2023 Encounter Details Date Type Department Care Team (Late st Contact Info) Description 12/03/2023 Telephone Vascular Surg [facility] [address] [place] [address] Services, Scheduling [address] [place] [address] Advice Allergies No known active allergiesdocumented as [...] Miscellaneous Notes * Telephone Encounter - Alexis Escamilla CRNP - 12/03/2023 8:53 AM EDT Reviewed [...] filedocumented as of this encounter Care Teams Executive Kitchen Manager Relationship Specialty Start Date End Date Eva Saldivar CRNP [address] [place] [address] PCP - General Nurse Practitioner 02/21/23 documented as of this encounter
--- OUTSIDE RECORDS SUMMARY | 2023-12-11 03:37 | External Medical Summary | Summary of Care ---
Author Name Unknown Organization [facility] Address [address] [place] [address] Phone [phone] Care Team Providers Care Topographic Computator Name Role Phone Eva Saldivar NANCY Primary Care Provider Reason for Visit * Reason Onset Date Comments Call Back 11/19/2023 Surgery question s Encounter Details Date Type Department Care Team (Late st Contact Info) Description 11/19/2023 Telephone Vascular Surg [facility] [address] [place] [address] Bright Aguilera MD [address] [place] [address] Call Back (Surgery questions) Allergies No known active allergiesdocumented as of this encounter (statuses as of 11/23/2023) Medications No known medicationsdocumented as of this encounter (statuses as of 11/23/2023) Active Problems Problem Noted Date Diagnosed Date Varicose veins of leg with complications 024 Thrombophlebitis of superfic ial veins of right lower extremity 09/12/2023 documented as of this encounter (statuses as of 11/23/2023) Social History Tobacco Use Types Packs/Day Years [...] encounter Miscellaneous Notes * Telephone Encounter - Matt Herrera OSA - 11/23/2023 10:48 AM EDT Pt called req later time for procedure Mon They live in [facility], she was going to see about adjusting time for procedure and they would call back Thanks ROLAND Davila * Telephone Encounter - Yusuf Melton PA-C - 11/19/2023 5:03 PM EDT I called pt, answered all of her questions * Telephone Encounter - Matt Herrera OSA - 11/19/2023 4:21 PM EDT Pt has numerous questions about the procedures on 11/25 since its a few weeks since she met with him and Dr Aguilera Req that Yusuf call pt Thanks ROLAND Davila documented in this encounter Plan of Treatment Upcoming Encounters Date Type Department Care Team (Latest Contact Info) Description 11/26/2023 7:15 AM EDT Hospital Encounter [facility] [address] [place] [id number] Bright Aguilera MD [address] [place] [address] 11/26/2023 7:15 AM EDT - 11/26/2023 9:16 AM EDT Surgery [facility] [place] [address] [place] [id number] Bright Aguilera MD [address], [place] [id number] STAB PHLEBECTOMY VARICOSE VEINS MORE THAN 20, ONE EXTREMITY 11/28/2023 1:00 PM EDT [facility] [address] [place] [address] 11/28/2023 2:10 PM EDT Office Visit Vascular Surgery, [facility] [address] [facility] [address] Sd Art MD [address], [place] [id number] Scheduled Procedures Name Priority Associated Diagnoses Date/Ti me STAB PHLEBECTOMY VARICOSE VEINS MORE THAN 20, ONE EXTREMITY Varicose veins of leg with complications Thrombophlebitis of superficial veins of right lower extremity 11/26/2023 7:15 AM EDT ENDOVENOUS RADIOFREQUENCY ABLATION THERAPY FIRST VEIN Varicose veins of leg with complications Thrombophlebitis of superficial veins of right lower extremity 11/26/2023 7:15 AM EDT Health Maintenance Due Date Last Done Comments [...] filedocumented as of this encounter Care Teams Topographic Computator Relationship Specialty Start Date End Date Eva Saldivar CRNP [address] [facility] [place] [place] [address] PCP - General Nurse Practitioner 02/21/23 documented as of this encounter
--- OUTSIDE RECORDS SUMMARY | 2023-12-11 03:37 | External Medical Summary | Summary of Care ---
Author Name Unknown Organization [facility] Address [address] [place] [address] Phone [phone] Care Team Providers Care Cartography Teacher Name Role Phone Eva Saldivar NANCY Primary Care Provider [phone] Reason for Visit * Auth/Cert Specialty Diagnoses / Procedures Referred By Josephine cassidy Referred To Contact Diagnoses Varicose veins of leg with complications Thrombophlebitis of superficial veins of right lower extremity Varicose veins of leg with complications [I83.899] Thrombophlebitis of superficial veins of right lower extremity [I80.01] Procedures STAB PHLEB VARICOSE;ABOVE 20 VEIN ABLATION EXTREMITY,ENDOVEN,1ST STAB PHLEBECTOMY VARICOSE VEINS MORE THAN 20, ONE EXTREMITY ENDOVENOUS RADIOFREQUENCY ABLATION THERAPY FIRST VEIN Bright Aguilera MD [address] [place] [address] Or [facility] [address] [place] [address] Referral ID Status Reason Start Date Expiration Date Visits Re quested Visits Authorized [id number] Encounter Details Date Type Department Care Team (Latest Contact Info) Description 11/26/2023 10:50 AM EDT - 11/26/2023 3:28 PM EDT Hospital Encounter [facility] [place] PURCELL [address] [place] [address] Bright Aguilear MD [address] [place] [address] Discharge Disposition: Home - Self Care Allergies No known active allergiesdocumented as of this encounter (statuses as of 11/27/2023) Medications Medication Sig Dispensed Refills Start Date End Date Status oxyCODONE HCl 5 MG Oral Tablet (Oxy IR) Take 1 Tablet by mouth every 8 hours as needed for Pain, Severe. 5 Tablet 11/26/2023 Active documented as of this encounter (statuses as of 11/27/2023) Active Problems Problem Noted Date Diagnosed Date Varicose veins of leg with complications 024 Thrombophlebitis of superfic ial veins of right lower extremity 09/12/2023 documented as of this encounter (statuses as of 11/27/2023) Social History Tobacco Use Types Packs/Day Years [...] Sign Reading Time Taken Comments Blood Pressure 131/48 11/26/2023 3:00 PM EDT Pulse 67 11/26/2023 3:00 PM EDT Temperature 35.8 C (96.4 F) 11/26/2023 2:45 PM ED T Respiratory Rate 15 11/26/2023 3:00 PM EDT Oxygen Saturation 100% 11/26/2023 3:00 PM EDT Inhaled Oxygen Concentration - - Weight - - Height - - Body Mass Index - - documented in this encounter Discharge Summaries * Maureen Strauss MD - 11/26/2023 2:23 PM EDT [facility] [address] [facility] [address] OUTPATIENT SURGERY DISCHARGE SUMMARY NOTE Name: Delicia Gamez Location: [place] [facility] [place] Date: 11/26/2023 Time: 2:23 PM Date and Time of Procedure: 11/26/2023 at 2:23 PM Surgery Date: 11/26/2023 Procedure(s): STAB PHLEBECTOMY VARICOSE VEINS ONE EXTREMITY - (Right) ENDOVENOUS RADIOFREQUENCY ABLATION THERAPY FIRST VEIN (Right) Surgeon: Bright Aguilera MD Discharge Diagnosis: Venous insufficiency After examination of this patient, I have determined she is ready for discharge to home when the patient meets criteria. Discharge instructions were given to the patient. Muareen Strauss MD Vascular Surgery Fellow documented in this encounter Discharge Instructions * Discharge Instr - AVS* Maureen Strauss MD - 11/26/2023 1:18 PM EDT Discharge Date: 11/26/2023 You may call Bright Aguilera MD of the department of Vascular Surgery at the [facility] office in [place] at [phone] option 2. After business hours, you may call with emergency questions to [phone] ask that the on-call Vascular Surgery provider be paged. The information below provides you with the instructions and the list of medications you need to betaking following discharge from the hospital. If you have any questions, please ask before leaving.Please carry this letter with you when you see your doctor in the clinic. If you have questions, you can reach us at the numbers above. Brief summary of your inpatient care: provoked right lower extremity superficial thrombophlebitis following surgical removal via a phlebectomy. Your primary diagnosis at discharge was varicose veins. Your doctors during this hospitalization included: Bright Aguilera MD Inpatient test results pending: None Complications: none significant Advance Directive Documented: Advance Directive Does the Patient have an Advance Directive? No SUPPLEMENTAL INSTRUCTIONS: POST-OP INSTRUCTIONS: Post Open Vascular Surgery Incision Care: Remove any dressing(s) in 48 hours. The incision(s) may be sealed with trinity, sutures, or coveredwith white adhesive tapes known as steri-strips. Either way, there is no need to cover up the incision(s) again with gauze unless there is drainage.You should clean your leg with mild soap and water daily. Leg Swelling: A certain amount of swelling is expected and can be improved with elevation of the leg most times of the day when you are sitting or lying. The idea is to elevate your leg on 2-3 pillows while lying flat for at least 1 hour at least 3 times per day. Should you notice significant swelling that does not improve with leg elevation, please call your vascular surgeon's office. Shower: You may shower (no tub baths) after 48 hours and get the incision(s) or steri- strips wet with soapywater and gently pat them dry. If the steri-strips come off in the shower, do not become concerned.If they are still in place 10 day after surgery, you may remove them. Driving: Do not drive for 2 to 4 weeks and until you are walking normally. You should not drive if you are on narcotics. Diet: You should eat a heart healthy low-fat diet. If your throat is sore, try eating soft foods. If you were given nutritional supplements prior to surgery, please finish the Impact AR three timesper day with meals. Activity: Do not do any heavy lifting (more than 5-10 pounds) or vigorous exercise for at least 4 weeks. Invasive Procedures: Any invasive procedure, such as dental work, endoscopy, colonoscopy, cystoscopy, etc. should be avoided in the first 3 months following surgery. If an urgent invasive procedure is required in the first 3 months following surgery, you should receive prophylactic antibiotics to prevent arterial graftinfections. The [place] endocarditis prophylaxis regimen may be used for this purpose. Return to Work: You should wait 2-4 weeks to go back to work. Please call our office at the number listed above if you need any paperwork completed. When to Call Your Surgeon: Persistent fever over 101.2 degrees Fahrenheit (39 degrees Celsius) Pain that is not relieved by your medication Persistent nausea or vomiting Persistent cough or shortness of breath Purulent drainage (pus) or bleeding from any incision Redness surrounding any of your incisions, that is worsening or getting bigger If you are unable to eat or drink liquids In Case of Emergency: Your surgeon is available 24 hours a day. You may call our office at the phone number listed above,go to your nearest Emergency Department, or dial 911. See your primary care physician (NANCY Staley) in 1 - 1 weeks. Special Instructions: Wound care/surgical site care: maintain compression dressing for twp days. Ambulate four to six times a day following surgery to ensure adequate blood flow following vein removal . Take Tylenol over the counter per bottle for pain; if there continues to be pain you have a Rx for Oxycodone that you can take for severe pain. For routine questions, your [facility] Vascular Surgery Team prefers the use of playnik. playnik is an online internet tool to help you meet your health care needs quickly by providing a secure, confidential way to view your health records and communicate with your [facility] Vascular SurgeryTeam. To sign up for playnik go to [email or web address] "Click" [place] Now on the right side o f the screen and complete the user registration information. HOW TO QUIT SMOKING Smoking is one of the hardest habits to break. About half of all those who have ever smoked have been able to quit, and most of those (about 70%) who still smoke want to quit. Here are some of the best ways to stop smoking. KEEP TRYING: It takes most smokers about 8 tries before they are finally able to fully quit. So, the more often you try and fail, the better your chance of quitting the next time! So, don't give up! GO COLD TURKEY: Most ex-smokers quit cold turkey. Trying to cut back gradually doesn't seem to work as well, perhaps because it continues the smoking habit. Also, it is possible to fool yourself by inhaling more while smoking fewer cigarettes. This results in the same amount of nicotine in your body! GET SUPPORT: Support programs can make an important difference, especially for the heavy smoker. These groups offer lectures, methods to change your behavior and peer support. Call the free national Quitline for more information. 593-WLOS-IRF (970-830-1835). Low-cost or free programs are offered by many hospitals, local chapters of the [place] [employer] (124-952-1200) and the [place] [employer] (086-595-4995). Support at home is important too. Non-smokers can help by offering praise and encouragement. If the smoker fails to quit, encourage them to try again! ULNK-AVN-XDCPXOW MEDICINES: For those who can't quit on their own, Nicotine Replacement Therapy (NRT) may make quitting much easier. Certain aids such as the nicotine patch, gum and lozenge are available without a prescription.However, it is best to use these under the guidance of your doctor. The skin patch provides a steady supply of nicotine to the body. Nicotine gum and lozenge gives temporary bursts of low levels of nicotine. Both methods take the edge off the craving for cigarettes. WARNING: If you feel symptoms ofnicotine overdose, such as nausea, vomiting, dizziness, weakness, or fast heartbeat, stop using these and see your doctor. PRESCRIPTION MEDICINES: After evaluating your smoking patterns and prior attempts at quitting, your doctor may offer a prescription medicine. Each has its unique advantage and side effects which your doctor can review with you. HEALTH BENEFITS OF QUITTING: The benefits of quitting start right away and keep improving the longer you go without smoking: -20 minutes: blood pressure and pulse return to normal -8 hours: oxygen levels return to normal -2 days: ability to smell and taste begins to improve as damaged nerves start to regrow -2-3 weeks: circulation and lung function improves -1-9 months: decreased cough, congestion and shortness of breath; less tired -1 year: risk of heart attack decreases by half -5 years: risk of lung cancer decreases by half; risk of stroke becomes the same as a non-smoker documented in this encounter H&P Notes * Yuan Chiu MD - 11/26/2023 11:15 AM EDT Images from the original note were not included. HISTORY AND PHYSICAL EXAMINATION - Vascular Surgery [address] [address] Name: Delicia Gamez Location: [place] [facility] Date: 11/26/2023 Time: 11:15 AM PRESENTING PROBLEM: Right lower extremity varicosities HISTORY OF PRESENT ILLNESS: Delicia Gamez is a 62 year old, female that presents to pre-op today for Right small saphenousvein ablation with Dr. Aguilera. Since the last clinic visit, no ED visits or hospitalizations. She does not report any new issues or complaints since the last clinic visit. Also denies fevers, chills, night sweats, nausea, vomiting, diarrhea, chest pain, and shortness of breath. Does the patient take Coumadin (warfarin)? no Does the patient take any other anticoagulants? no /Last Clinic Visit (09/12/23) Date of Service: 09/12/2023 12:11 PM Delicia Gamez is a 62 year old female. Patient being seen in consultation at the request of NANCY Staley Chief Complaint: New pt, RLE superficial thrombophlebitis 2022 HPI: Pt suffered RLE superficial thrombophlebitis, 17 cm of calf 2022 Treated with 3 months Eliquis Seen by Aj, found to have Protein S Deficiency Has remote H/O BLE VV stripping, 30 yrs ago [place] to be provoked due to prolonged driving Wears knee high support stockings since 2022 event Burning pain from right calf varicosities VARICOSE VEINS: Clinical Classification (C): C2 (Varicose veins). S (Symptomatic) varicose veins. Etiologic Classification (E): Ep (Primary). Anatomic Classification (A): As (Superficial). Pathophysiologic Classification (P): Pr (Reflux). FAMILY HISTORY: Dad had varicose veins and sister Current Medications Current Outpatient Medications Medication Sig Dispense Refill Apixaban 5 MG Oral Tablet (Eliquis) Take 1 Tablet by mouth in the morning and 1 Tablet before bedtime. (Patient not taking: Reported on 07/17/2023) No current facility-administered medications for this visit. Allergies Review of patient's allergies indicates: No Known Allergies Problem List There is no problem list on file for this patient. Past Medical History No past medical history on file. Past Surgical History No past surgical history on file. Family History No family history on file. Social History Socioeconomic History Marital status: Spouse name: Not on file Number of children: Not on file Years of education: Not on file Highest education level: Not on file Occupational History Not on file Tobacco Use Smoking status: Former Current packs/day: 0.00 Types: Cigarettes Quit date: 09/11/1993 Years since quittin.0 Smokeless tobacco: Never Substance and Sexual Activity [...] pain, shortness of breath, palpitations, angina or CO Neurological: Negative for stroke, TIA, amaurosis fugax All other systems negative except for those noted above and in the history of present illness (HPI). GENERAL MULTI-SYSTEM PHYSICAL EXAM: VITAL SIGNS: BP 110/68 (BP Site: Left Arm, BP Position: Sitting, BP Cuff Size: Regular) | Pulse 60 | Temp 36.6 C (97.9 F) (Tympanic) | Ht 1.753 m (5' 9") | Wt 71.7 kg (157 lb 15.4 oz) | BMI 23.33 kg/m | BSA1.87 m GENERAL MULTI-SYSTEM PHYSICAL EXAM:ADDITIONAL VS: pulse regular. GENERAL: Normal grooming habits, no acute distress, and appears stated age. NECK: No masses and Normal Thyroid. RESPIRATORY: respiratory effort normal and breath sounds normal. CARDIOVASCULAR: no heart murmurs, no edema, and Varicosities present right posterior calf, 5-8 mm. GASTROINTESTINAL: no tenderness, protuberant, and abdominal aorta [...] Motor function intact, and Sensory exam intact PULSE SCALE: Carotid Right:----Bruit: No Left:----Bruit: No Radial Right: 3 Left: 3 Femoral Right: 3 Left: 3 Dorsalis Pedis Right: 3 Left: 3 Posterior Tibial Right: 3 Left: 3 PULSE SCALE: 4=Aneurysmal; 3=Normal; 2=Diminished; 1=Barely Palpable; 0=Absent DIAGNOSTIC STUDIES: 09/12/23 Venous Insuff Duplex: No deep reflux, RGSV UI, RSSV 0.71 cm w/ reflux over 500 msec The above vascular lab images were directly visualized and independently interpreted by me on 09/12/2023 with results as above. IMPRESSIONS: RLE superficial thrombophlebitis, 17 cm of right calf 2022 Treated with 3 months Eliqucruzito Seen by Aj, found to have Protein S Deficiency Has remote H/O BLE VV stripping, 30 yrs ago PLAN: The patient was counseled regarding the pathophysiology and the natural history of varicose veins/venous insufficiency, as well as the interventional and noninterventional treatment options [id number] - 30 mm knee high compression stockings, leg elevation, and a regular walking program. The patient was seen and examined with Bright Aguilera MD. CHICO CassidyC Section of Vascular [place] [address] [phone] I have reviewed the advanced practitioner's documentation on the date of service referenced in note, and I agree with, and take responsibility for the plan of care. Right calf thrombophelbitis Massive right Small saphenous vein with reflux Prior stripping of both GSVs Despite knee high compression stockings she has continued pain Plan right small saphenous ablation and stab phelbectomy The patient was counseled at length regarding the risks, benefits and alternatives of varicose vein/venous ablative surgery. I have discussed with the patient that they are at very high risk for the following anticipated complications due to the patients co-morbidities including deep venous thrombosis or other blood clot requiring manager long term care anticoagulation. I have also discussed other less common risks which include, but are not limited to, acute and/or chronic pain, swelling, scarring, skin/nerve injury, bleeding, infection, and varicose vein/symptom recurrence after the procedure. The patient understands and wishes to proceed. The [facility] Vein Surgery Patient Education booklet was given to the patient. Bright Aguilera MD Section of Vascular [place] [address] [phone] HOSPITAL PROBLEM LIST: Patient Active Problem List Diagnosis Varicose veins of leg with complications Thrombophlebitis of superficial veins of right lower extremity PAST MEDICAL HISTORY: No past medical history on file. PAST SURGICAL HISTORY: No past surgical history on file. FAMILY HISTORY: No family history on file. SOCIAL HISTORY: Social History Tobacco Use Smoking status: Former Current packs/day: 0.00 Types: Cigarettes Quit date: 09/11/1993 Years since quittin.2 Smokeless tobacco: Never Substance Use Topics Alcohol use: Yes Drug use: Never CURRENT HOSPITAL MEDICATIONS: Note that completed medications (per the MAR) continue to display for 24 hours. Ordered medicationsto be given in the future also display. Current Facility-Administered Medications Medication Dose Route Frequency Provider ceFAZolin in dextrose (Ancef) ivpb 2 g 2 g IV Piggyback Pre-Op Yusuf Melton PA-C isolyte-S pH 7.4 infusion Intravenous Continuous Yusuf Melton PA-C ALLERGIES: Patient has no known allergies. ROS: All other systems negative except for those in the history of present illness (HPI). PHYSICAL EXAMINATION: BP: 128 mmHg/61 mmHg (11/26/23 1114) Pulse: 53 (11/26/23 1114) Resp: 11 (11/26/23 1114)/ Temp: 36 C (11/26/23 1114) Temp Summary: Temp Min: 36 C (96.8 F) Max: 36 C (96.8 F) SpO2: 100 % (11/26/23 1114) O2 flow rate: Supplemental O2 Delivery: Room Air, None (11/26/23 111) Gen: A&Ox3 HENT: Supple, No LAD Pulm: Comfortable on RA Cardio: RRR on monitor Abd: soft, nontender MSK: Spont moves extremities Neuro: No obvious deficits Extremity: Right lower extremity varicosities noted. LABS: Labs reviewed as indicated below: No results found for this or any previous visit (from the past 12 hour(s)). IMAGING: No imaging results in the last 72 hours IMPRESSION and PLAN: - Plan for Right lower extremity small saphenous ablation and stab phlebectomy with Dr. Aguilera This patient was seen and examined at bedside and will be discussed with Dr. Aguilera. Yuan Chiu MD Vascular Surgery PGY1 [facility] 11/26/2023 11:18 AM Associated attestation - Bright Aguilera MD - 11/26/2023 12:24 PM EDT I saw and evaluated the patient today. I have reviewed the resident/fellow physician note and agree. documented in this encounter Nursing Notes * Karen Brantley RN - 11/26/2023 2:25 PM EDT Dual Licensed Skin Assessment completed by LETICIA Perez and LETICIA Jolley. The patient is/has a N/A Skin Breakdown (includes non blanchable erythema): Yes - Surgical/Procedural changes only. * Preethi Sheffield RN - 11/26/2023 11:21 AM EDT Dual Licensed Skin Assessment completed by Hola Sheffield RN and Mirian Bravo RN. The patient is/has a N/A Skin Breakdown (includes non blanchable erythema): No * Karley Sepulveda RN - 11/22/2023 10:15 AM EDT Surgical case is tomorrow, no call made. Chart review completed. Patient does not have a [employer] portal. NO ANESTHESIA EVAL REQUESTED PER CASE DOCUMENTATION. PREOP PATIENT INFORMATION AND EDUCATION: MEDICATION INSTRUCTIONS: The day of surgery/procedure, you may TAKE the following medications with a sip of water up to 2 hours prior to your arrival time: Please follow the pre-operative instructions provided by your vascular surgeon. If you have any questions regarding these instructions please contact your surgeon's office at [phone]. Nothing to eat or drink by mouth after midnight the night before surgery including no food, no gum/hard candy, coffee, tea, other drink, or tobacco product. Continue all of your normal morning medications with a few sips of water on day of surgery unless otherwise instructed. STOP taking the following medications the noted number of days prior to surgery/procedure unless otherwise specified by your surgeon: Please follow surgeon's instructions regarding use of Aspirin, Coumadin, Plavix, Eliquis, and any other blood thinner including NSAIDs (non-steroidal anti- inflammatory drugs, eg, Advil, Ibuprofen, Motrin, Aleve, Naproxen); if you have any questions regarding your anticoagulation therapy please contact your surgeon's clinic. Please verify any proposed stoppage of your anticoagulation therapy with the agent's prescribing provider. 10 days prior to surgery/procedure Stop all Herbal supplements, Green Tea, Turmeric, Melatonin, CBD, THC, etc. Stop all Vitamins (including Vitamin E) 24 hours prior to surgery/procedure DO NOT consume any alcohol. DO NOT use medical marijuana. DO NOT smoke or use tobacco products of any kind after midnight prior to surgery. *Using any of these products may increase your risks of procedural complications. IF IT IS LESS THAN RECOMMENDED STOPPAGE TIME PLEASE STOP AT TIME OF NOTIFICATION. FASTING RECOMMENDATIONS: To reduce risk, it is important for all elective surgery patients to follow the specific fasting guidelines listed below. If you have received more stringent guidelines, please follow the MOST RESTRICTIVE guidelines that you have been provided. DO NOT EAT after midnight on the night prior to your surgery date. You are allowed to drink clear liquids up to two hours prior to arrival time to the hospital or surgery center. Examples of clear liquids include water, clear fruit juice without pulp, clear carbonated beverages, clear tea, and black coffee. Any drinks given by your surgical service take as directed. THE DAY BEFORE YOUR SURGERY: -Drink plenty of fluid the day before your surgery. Contact your surgeon's office if you develop any of the following within 2 weeks of surgery: A cold Infection Fever Shingles Chicken pox or exposure to chicken pox Open areas such as scrapes, cuts, khan or other skin conditions Rashes GENERAL INSTRUCTIONS FOR PREPARING FOR SURGERY: BATHING INSTRUCTIONS: Bathe the evening prior to and the morning of surgery/procedure. Cleanse your body using ONLY anti-bacterial soap (eg, Dial, Safeguard) or any specific soap/cleansers and instructions provided by your surgeon (eg, Chlorhexidine). -You should brush your teeth the morning of surgery. Do NOT apply any lotions, powders, sprays, creams, oils, make-up, or deodorants after bathing. No hairspray, or nail spanish on fingers or toes. Day of surgery/procedure do not use tampons. If you wear contacts wear your eyeglasses if available otherwise bring your contact supplies with you to remove them prior to your surgery/procedure. If you wear glasses or dentures, please bring cases in which you can store them during your surgery. Please remove all piercings and jewelry and leave them at home. Wear comfortable and loose clothing. -Please leave all valuables at home. -If you use a CPAP and are staying overnight, please bring your mask and tubing with you to the hospital. -If you use an assistive mobility device (walker, cane, etc), please label it with your name and bring to hospital. -An escort local combination truck driver is required if you are being discharged the same day of the surgery. You should have a responsible adult over the age of 18 [address] you home. This person should be present with you in the hospital at the time of discharge and for the first 24 hours after the surgery to support your needs. If you are taking a taxi home, you must have your responsible constitution party accompany you in the taxi ride home at the time of discharge. OR times subject to change. Please check voicemail messages the day/evening before your surgery forany updates. PRE-OP: You will be taken to the pre-op area where your vital signs (blood pressure, pulse and temperature)will be taken. Any preparations that need to be done will be done there. When it is time for your surgery, you will be taken to the operating room. PARENTS OF PEDIATRIC PATIENTS WILL BE ALLOWED TO STAY WITH THEIR CHILDREN UNTIL THEY ARE ESCORTED TO THE OPERATING ROOM OUTPATIENT SURGERY PATIENTS: After your surgery you will be taken to the Same Day Surgery Unit when you are awake and will go home from there. You will get instructions about your home care before you leave. Arrange to have someone drive you home from the hospital. You may not drive for 24 hours after anesthesia. You must havean adult stay with you at home for 24 hours after your operation. This is very important. If you are not able to comply with these guidelines, your Short Stay surgery cannot be done. ADMISSION PATIENTS: After your stay in the recovery area, you will be taken to your room. Your family may visit you in your room based on current visitation policy. If a next day discharge is expected, it is important to make arrangements for a local combination truck driver to take you home. Please be aware our visitation policies are subject to change Professionals, attendants, caregivers or family members are allowable visitors for patients with intellectual, developmental or cognitive disabilities, communication barriers or behavioral concerns. Because patients' and families' needs vary, they will be taken into account when applying visitation restrictions. [facility]: Contact # [phone] Directions to Surgical Suite in from the [facility] Entrance The Surgical Waiting Room can be found in the Lobby of [facility]. [facility] and the Waiting Room is directly in front of you. Proceed to check in and give them your name. Directions to Surgical Suite from the East Entrance Enter the East entrance and follow the hallway to the J elevator. Take the J elevator up to Level 1. Continue down the long hallway to the main [facility]. The Surgical Waiting Room will be on your Right. Proceed to check in and give them your Name. Directions to Surgical Suite from the Parking Garage Enter the [facility] lobby and proceed down the hannah to the left. At the end of the hannah, turn right. Continue down the long hallway to the main [facility]. The Surgical Waiting Room will be on your Right. Proceed to check in and give them your Name. Karley Sepulveda, MSN, RN [facility] 11/22/2023 documented in this encounter OR Notes * OR Surgeon - Bright Aguilera MD - 11/26/2023 2:01 PM EDT [address] [address] OPERATIVE REPORT Name: Delicia Gamez Date: 11/26/2023 Time: 2:01 PM Location: [place] [facility] [place]: Vascular Surgery Date of Operation: 11/26/2023 Pre-op Diagnosis: RIGHT short saphenous vein reflux and severely symptomatic varicose veins Post-op Diagnosis: Same. Surgeon: Bright Aguilera MD Assistants: Maureen Strauss MD Anesthesia: Monitored Local Anesthesia with Sedation Operation: Radiofrequency ablation of the RIGHT short saphenous vein. Right stab avulsion of multiple branch varicosities. Specimens: None Estimated Blood Loss: 5 ml Fluids: 800 ml crystalloid Urine output: Not applicable Findings: varicose veins RIGHT lower extremity Drains/Implants: None Complications: None Postoperative Condition: Stable Indications and History: Delicia Gamez presents with RIGHT short saphenous vein reflux and severely symptomatic varicose veins for vein intervention. She has had bilateral vein stripping of the great saphenous veins in the past. DESCRIPTION OF THE OPERATION: The patient was identified and the procedure confirmed. In the operating room a time out was held and the above information confirmed. The short saphenous vein was marked with ultrasound guidance. The patient was placed in a reverse Trendelenburg position and the saphenous vein was cannulated percutaneously at the level of the mid calf. A sheath was passed into the saphenous vein. The 7 Sudanese catheter for the radiofrequency ablation was then passed through the saphenous vein and was localized with the duplex ultrasound at the level of the saphenopopliteal junction. The catheter was withdrawn2 cm distal to the level of the sapheno-popliteal junction within the short saphenous vein. Tumescent local anesthetic was infiltrated in the subfascial plane under ultrasound guidance throughout the length of the planned ablation treatment area. The patient was placed in the Trendelenburg position. External compression was applied. The test of the catheter was completed and it was found to be working appropriately. The radiofrequency generation was then begun with the appropriate pullback done in incremental fashion with two treatments done proximally and three treatment(s) done distally. Multiple branch varicosities were then excised in the RIGHT leg. Small incisions were created with the tip of a #11 blade and a then fine snap and barry hook used to remove the branch varicosities.15 stab phlebectomies in this leg were performed. Followup duplex showed the short saphenous vein to be noncompressible and without flow throughout the treatment region. The popliteal vein had normal flow at the conclusion of the procedure. The sheath was removed, and a small Steri- Strip applied at the puncture site. Sterile dressing applied. Attestation: I was present and scrubbed for the entire procedure documented in this encounter Plan of Treatment Upcoming Encounters Date Type Department Care Team (Late st Contact Info) Description 11/28/2023 1:00 PM EDT Imaging Vascular Lab, [facility] [address] [address] 11/28/2023 2:10 PM EDT Office Visit Vascular Surgery, [facility] [address] [place] [address] Sd Art MD [address] [place] [address] Health Maintenance Due Date Last Done Comments Lipid Panel 1958 Depression Screening 1970 HIV Screening 1973 Hepatitis C Screening 1976 DTap/Tdap Vaccines (1 - Tdap) 1977 Pap Smear 12/10/1979 Cervical Cancer Screening 1988 HPV/Co-Test 1988 Mammogram 1998 Cologuard 12/10/2003 Colonoscopy 12/10/2003 Colorectal Cancer Screening 12/10/2003 Fecal Occult Blood Test 12/10/2003 Sigmoidoscopy 12/10/2003 Zoster Vaccines (1 of 2) 2008 COVID-19 Vaccine (4 - 2023-2 5 season) 2023 11/24/2020, 05/21/2020, 04/30/2020 [...] Not on filedocumented as of this encounter Procedures Procedure Name Priority Date/Time Associated Diagnosis Comments [facility] US INTRA OP GUIDANCE Routine 11/26/2023 2:13 PM EDT Varicose veins of leg with complications documented in this encounter Results * [facility] US INTRA OP GUIDANCE (11/26/2023 2:13 PM EDT) Narrative Scheduling, Silent - 11/26/2023 2:13 PM EDT This procedure will not be read by a Radiologist. Please see operative note. Bright Aguilera MD RAD VASCULAR documented in this encounter Visit Diagnoses Diagnosis Thrombophlebitis of superficial veins of right lower extremity- Primary Thrombophlebitis of superficial veins of right lower extremity Varicose veins of leg with complications Varicose veins of lower extremities with other complications Varicose veins of leg with complications Varicose veins of lower extremities with other complications documented in this encounter Administered Medications Inactive Administered Medications - up to 3 most recent administrations Medication Order MAR Action Action Date Dose Rate Site Acetaminophen (Tylenol) tab 975 mg 975 mg, Oral, ONCE, On Mon 14/24 at 1545, For 1 dose, Maximum of 4 grams (4000 mg) per day., PACU Given 11/26/2023 3:15 PM EDT 975 mg isolyte-S pH 7.4 infusion Intravenous, at 50 mL/hr, Plasma-LYTE 148, isolyte-S, and isolyte-S pH 7.4 are considered equivalent - including for MAR barcode scanning., CONTINUOUS, Starting on Sun11/26/23 at 1145, Until Sun11/26/23 at 1928, Pre-Op Restarted 11/26/2023 1:40 PM EDT Continue from Pre-Op 11/26/2023 1:07 PM EDT 50 mL/hr New Bag 11/26/2023 11:36 AM EDT 50 mL/hr documented in this encounter Active and Recently Administered Medications Times are shown in EDT. Scheduled Medication Order 11/24/2023 11/25/2023 11/26/2023 Acetaminophen (Tylenol) tab 975 mg (COMPLETED) 975 mg, Oral, ONCE, On Sun11/26/23 at 1545, For 1 dose, Maximum of 4 grams (4000 mg) per day., PACU 1515 (Given - Provid er: Karen Brantley RN) ceFAZolin in dextrose (Ancef) ivpb 2 g (COMPLETED) 2 g, IV Piggyback, PREOP, 1 dose, First dose on Sun11/26/23 at 1145, Administer 60 minutes prior to skin incision, Pre-Op 1316 (Given - Provid er: Usman Crowley CRNA) Continuous Medication Order 11/24/2023 11/25/2023 11/26/2023 isolyte-S pH 7.4 infusion Intravenous, at 50 mL/hr, Plasma-LYTE 148, isolyte-S, and isolyte-S pH 7.4 are considered equivalent - including for MAR barcode scanning., CONTINUOUS, Starting on Sun11/26/23 at 1145, Until Sun11/26/23 at 1928, Pre-Op 1136 (New Bag - Prov ider: Preethi Sheffield RN)1307 (Continue from Pre-Op - Provider: Usman Crowley CRNA)1339 (Paused - Provider: Rodolfo Kumar CRNA - Comment: Switch to gravity)1340 (Restarted - Provider: Rodolfo Kumar CRNA)1405 (Anes Intra-Op Fluid - Provider: Usman Crowley CRNA) PRN Medication Order 11/24/2023 11/25/2023 11/26/2023 hydrogen peroxide topical solution (CANCELED) ONCE PRN INTRA PROCEDURE, Starting on Sun11/26/23 at 1337, Until Sun11/26/23 at 1403, Intra-Op 1337 (Given - Provid er: Bright Aguilera MD - Comment: PRN to field intraop) lidocaine 1 % inj (CANCELED) ONCE PRN INTRA PROCEDURE, Starting on Sun11/26/23 at 1359, Until Sun11/26/23 at 1403, Intra-Op 1359 (Given - Provid er: Bright Aguilera MD) lidocaine-epinephrine 1 %-1:500562 50 mL in NSS 1,000 mL (CANCELED) ONCE PRN INTRA PROCEDURE, Starting on Sun11/26/23 at 1358, Until Sun11/26/23 at 1403, Intra-Op 1358 (Given - Provid er: Bright Aguilera MD) sodium chloride IR 0.9 % irrigation (CANCELED) ONCE PRN INTRA PROCEDURE, Starting on Sun11/26/23 at 1336, Until Sun11/26/23 at 1403, Intra-Op 1336 (Given - Provid er: Bright Aguilera MD - Comment: PRN to field intraop) documented in this encounter Care Teams Cartography Teacher Relationship Specialty Start Date End Date Eva Saldivar CRNP [address] [place] [address], [place] [address] PCP - General Nurse Practitioner 02/21/23 documented as of this encounter
[2023-12-11] MEDS: ACETAMINOPHEN 325 MG TAB PO PRN (08:45)
[2023-12-11 10:39] LABS: ANTI-Xa, UFH(UnfractionatedHep 0.65 IU/ml (0.3-0.7)
--- NOTE | 2023-12-11 11:15 | Electrocardiogram Report ---
Test Reason : Blood Pressure : */* mmHG Vent. Rate : 69 BPM Atrial Rate : 69 BPM P-R Int : 164 ms QRS Dur : 88 ms QT Int : 406 ms P-R-T Axes : 36 -1 53 degrees QTcB Int : 435 ms Normal sinus rhythm Normal ECG No previous ECGs available Confirmed by Stephon Castillo ([id number]) on 12/11/2023 11:15:41 AM Referred By: Bright Aguilera Confirmed By: Stephon Castillo
--- NOTE | 2023-12-11 11:23 | Discharge Summary ---
Date of Service December 11, 2023 Admission HPI Per Admitting Provider Delicia Gamez is a 63yo female with no significant past medical or surgical history presenting with LLE pain as well as right sided pleuritic chest pain. Patient with history of varicose veins s/p vein stripping in the past. She developed a blood clot in her RLE varicosity in December 2022 and was treated with Eliquis x 3 months (venous doppler 12/28/22 with longsegment superficial thrombus within varicosity of theright calf extending 17cm). She had varicose vein surgery two weeks ago performed at [facility] which was uncomplicated. Patient recently flew to [place], [place]. Several days ago she developed some pain and tightness in her left calf with walking. Today she developed sudden onset of right shoulder and anterior chest discomfort - pleuritic in nature. She feels like she is having a hard time taking a full breath. Patient called her surgeon at [facility] and was instructed by the on- call provider to go to the ER for evaluation. No additional complaints - specifically denies fever, chills, palpitations, abdominal pain, nausea, vomiting, diarrhea. In the ER patient afebrile, HD stable, adequate oxygenation on room air ER Course: Heparin gtt initiated Principal Diagnosis LLE DVT and PE, with RLE superficial thrombus Discharge Exam General: patient resting comfortably, NAD, non-toxic in appearance, answers questions appropriately. Skin: warm, dry, intact HEENT: NC/AT, anicteric sclera, conjunctiva without injection, moist mucus membranes. Heart: +S1/S2, regular, no m/r/g Lungs: equal air entry bilaterally, no rales/rhonchi/wheezes Abd: +BS, soft, NT/ND, uterine fundus firm at umbilicus, caesarean incision C/D/I. Ext: warm, no clubbing/cyanosis or edema, Daphney's neg. Neuro: nonfocal, speech intact, no facial droop, moving all extremities. Discharge Data Allergies Allergy/AdvReac Type Severity Reaction Status Date / Time No Known Allergies Allergy Verified 06/12/23 10:56 Consultations 12/10/23 19:51 ED Decision to Admit Stat Ordered Studies 12/10/23 17:46 CT angio chest PE protocol Stat US venous doppler LE BI Stat Total Time Total Time Spent Total Time Spent (In Minutes): See attending attestation Discharge Plan Discharge Items Patient Disposition: Home - Self-Care Reason For Visit: PE,DVT Discharge Diagnosis: PE/DVT Condition on Discharge: Good Activity: Per Instructions section Non-emergency contact: Primary Care Provider Call non-emergency contact if: your symptoms worsen and your pain is not controlled Follow-up/Referrals: Eva Saldivar [Primary Care Provider] - Diet: Regular Addtl Attending Provider Instructions: You were admitted to the hospital for SOB and chest pain due to PE and leg swelling and tenderness due to DVT. You were treated with heparin to help reduce and resolve the clots in your legs and lungs. In the hospital we started you on a new drug called Eliquis. You have been on this drug in the past for 3 months, however it is important that you stay adherent to this medication as prescribed. You will begin this medication at 10mg TWICE daily for the first 7 days and then will transition to 5 mg TWICE daily for approximately 6 months. After this your pcp will adjust you medication dosage. A discharge summary will be sent to your primary care physician to ensure continuity of care. Please bring this discharge summary with you to your next office appointment so that your provider can review it at that time. Follow-up appointments: Make a follow-up appointment with your PCP within the next week. It is very important that you follow up with them shortly after discharge from the hospital. Medications: Your medication list has been reviewed and reconciled upon discharge to ensure accuracy and continuity of care. An updated list of all your medications is included with your hospital discharge paperwork. Please review this list closely, and make note of any changes. We sent a new medication called Eliquis to your pharmacy. Take Eliquis 10 mg one tablet TWICE per day for the first 7 days, after this take Eliquis 5mg TWICE per day for 6 months. After this your Eliquis dose can be adjusted by your PCP, likely to 2.5 mg twice per day. If you have any issues filling these prescriptions, please call [phone] and ask to leave a message for Dr. Patrick Valle. Take your medications as instructed; do not skip a dose of your medicines. Make sure all of your doctors know every medicine you are taking (including hlph-got-pkmohjw medicines, vitamins, and supplements). Call your primary care provider before taking any new medicines (including vvvb-jyf-soaowyr medicines, vitamins, and supplements), because some of these may interact with your current medications, or may make your symptoms worse. Tell your primary care provider if you cannot afford your medications. CONTACT YOUR PRIMARY CARE PROVIDER if you experience any of the following: Difficulty following your treatment plan, or difficulty taking medications CALL 911 OR GO TO THE EMERGENCY DEPARTMENT if you experience any of the following: Sudden, severe abdominal pain or nausea/vomiting Severe chest pain, or chest pain that radiates (moves) to your jaw or arm Sudden, severe shortness of breath or difficulty breathing Thank you for allowing us to participate in your care. Pending Studies at Discharge: No Stand-Alone Forms: My [facility] [employer] Smoking Cessation Medications and DC Order Prescriptions: New Eliquis 5 mg tablet 5 mg PO BID Qty: 90 2RF Rx Instructions: Please take Eliquis 5mg pill, 2 in the morning and 2 in the evening for a total of 20mg per day for the first 7 days. After this take Eliquis 5mg pill 1 in the morning and 1 in the evening for a total of 10mg per day for approximately 6 months. No Action No Known Home Medications Discharge Orders: Discharge Order (Routine); Ordered 12/11/23 Ordered By: Patrick Valle Admission Data Admit Date/Time: 12/10/23 20:59 Attending Provider: Osiris Moralez Admit Provider: Samanta Payne Primary Care Provider: Eva Saldivar Other Providers: Samanta Payne Other Interventions: Discharge Summary Assessment (RN) Last Done: 12/11/23 15:22 Supervising Physician Co-Signing Physician Notes I personally examined the patient and verified gaffney points of history and exam, discussed case, and agree with decision making and plan documented by Dr. Valle. Patient is a 63-year-old female with provoked PE and DVT following vascular surgery intervention for varicosities two weeks ago as well as recent travel to [place] via airplane. Patient states that in the past she has had a superficial thrombus and was previously worked up by hematology, was on DOAC (apixaban) for 3 months. Patient initially placed on heparin drip and was transitioned to oral Eliquis, this has been sent to her pharmacy upon discharge. Patient aware of increased risk of bleeding, she is very active individual, encouraged to be mindful of safety. Discussed consideration of longer duration of DOAC treatment given recurrance of VTE, possibly 6-12 months. She will discuss at follow-up with PCP. Resident Activity Tracking Resident Involvement: Resident Care Provided Care Provided: Adult [facility] Medicine
[2023-12-11] MEDS: APIXABAN 5 MG TABLET PO ONE (12:54)
--- OUTSIDE RECORDS SUMMARY | 2023-12-11 16:31 | External Medical Summary | Summary of Care ---
Author Name Unknown Organization [facility] Address [address] [place] [address] Phone [phone] Care Team Providers Care Felt Hooker Name Role Phone Eva Saldivar NANCY Primary Care Provider Encounter Details Date Type Department Care Team (Late st Contact Info) Description 12/10/2023 Telephone Vascular Surg [facility] [place] [address] [place] [address] Jen Puente PA-C [address] [place] [address] Allergies No known active allergiesdocumented as of this encounter (statuses as of 12/11/2023) Medications Medication Sig Dispensed Refills Start Date End Date Status oxyCODONE HCl 5 MG Oral Tablet (Oxy IR) Take 1 Tablet by mouth every 8 hours as needed for Pain, Severe. 5 Tablet 11/26/2023 Active Additional Information Patient not taking.Reported on 11/28/2023 documented as of this encounter (statuses as of 12/11/2023) Active Problems Problem Noted Date Diagnosed Date Varicose veins of leg with complications 024 Thrombophlebitis of superfic ial veins of right lower extremity 09/12/2023 documented as of this encounter (statuses as of 12/11/2023) Social History Tobacco Use Types Packs/Day Years [...] encounter Miscellaneous Notes * Telephone Encounter - Alyssa Marlow LPN - 12/11/2023 8:49 AM EDT Spoke with patient and she states that she went to the ED and they admitted her. She has "Little blood clothes in both of her legs and in her lungs". They have her on IV Heparin. Alyssa Marlow LPN 12/11/2023 8:51 AM * Telephone Encounter - Jen Puente PA-C - 12/11/2023 8:39 AM EDT It looks like patient did not go to the ED. Can you call her and ask if she got evaluated? If she did not is she still having symptoms? * Telephone Encounter - Jen Puente PA-C - 12/10/2023 4:51 PM EDT Patient had surgery on 11/25. She just went on a trip She is now reporting L calf pain/tightness and new onset chest pain/trouble taking deep breath. I told her she has 2 recent risk factors for blood clot and I would like her to go to the ED for a LLE venous duplex and CT pulm embulus. She has agreed and her will take her now. She thanked me for the call documented in this encounter Plan of Treatment Health Maintenance Due Date Last Done Comments Lipid Panel 1958 Depression Screening 1970 HIV Screening 1973 Hepatitis C Screening 1976 DTap/Tdap Vaccines (1 - Tdap) 1977 Mammogram 1998 Cologuard 12/10/2003 Colonoscopy 12/10/2003 Colorectal Cancer Screening 12/10/2003 Fecal Occult Blood Test 12/10/2003 Sigmoidoscopy 12/10/2003 Zoster Vaccines (1 of 2) 2008 COVID-19 Vaccine (4 - 2023-2 5 season) 2023 11/24/2020, 05/21/2020, 04/30/2020 Influenza Vaccine (FLU shot) (#1) 2023 12/14/2015 DXA Scan 12/10/2023 Pneumococcal Vaccine: 65+ Years (1 of 1 - PCV) 12/10/2023 HPV (Gardasil) Vaccine Aged Out No lo [...] filedocumented as of this encounter Care Teams Felt Hooker Relationship Specialty Start Date End Date Eva Saldivar CRNP [address] [place] [address] PCP - General Nurse Practitioner 02/21/23 documented as of this encounter
--- OUTSIDE RECORDS SUMMARY | 2023-12-11 16:31 | External Medical Summary | Summary of Care ---
Author Name Unknown Organization [facility] Address [address] [place] [address] Phone [phone] Care Team Providers Care Digital Design Engineer Name Role Phone Eva Saldivar NANCY Primary Care Provider Encounter Details Date Type Department Care Team (Late st Contact Info) Description 12/10/2023 Telephone Vascular Surg [facility] [place] [address] [place] [address] Jen Puente PA-C [address] [place] [address] Allergies No known active allergiesdocumented [...] encounter Miscellaneous Notes * Telephone Encounter - Jen Puente PA-C [...] filedocumented as of this encounter Care Teams Digital Design Engineer Relationship Specialty Start Date End Date Eva Saldivar CRNP [address] [place] [address] PCP - General Nurse Practitioner 02/21/23 documented as of this encounter
--- OUTSIDE RECORDS SUMMARY | 2023-12-11 16:31 | External Medical Summary | Summary of Care ---
Author Name Unknown Organization [facility] Address [address] [place] [address] Phone [phone] Care Team Providers Care Motor And Chassis Inspector Name Role Phone Eva Saldivar NANCY Primary Care Provider [phone] Encounter Details Date Type Department Care Team (Late st Contact Info) Description 12/10/2023 Telephone Vascular Surg [facility] [place] [address] [place] [address] Jen Puente PA-C [address] [place] [address] Allergies No known active allergiesdocumented as of this encounter (statuses as of 12/10/2023) Medications Medication Sig Dispensed Refills Start Date End Date Status oxyCODONE HCl 5 MG Oral Tablet (Oxy IR) Take 1 Tablet by mouth every 8 hours as needed for Pain, Severe. 5 Tablet 11/26/2023 Active Additional Information Patient not taking.Reported on 11/28/2023 documented as of this encounter (statuses as of 12/10/2023) Active Problems Problem Noted Date Diagnosed Date Varicose veins of leg with complications 024 Thrombophlebitis of superfic ial veins of right lower extremity 09/12/2023 documented as of this encounter (statuses as of 12/10/2023) Social History Tobacco Use Types Packs/Day Years [...] filedocumented as of this encounter Care Teams Motor And Chassis Inspector Relationship Specialty Start Date End Date Eva Saldivar CRNP [address] [facility] [place] [address] PCP - General Nurse Practitioner 02/21/23 documented as of this encounter
== END 2023-12-11 15:22 | disposition home or self-care (01) ==
LOC: EDINP 17:12 → ED 17:12 → SUATTDRO 20:59 → EDINP 21:54